=== PATIENT | female | born 1995 | race Caucasian/White ===

== ENCOUNTER 2025-03-11 18:03 | Emergency (ER) | payer BC ==
[~2025-03-11] VITALS: Ht 160 cm; Wt 61.2 kg
[2025-03-11 18:06] VITALS: TEMP 36.8; O2SAT 100
[2025-03-11 18:12] VITALS: O2SAT 100
[2025-03-11 18:59] LABS: HEMATOCRIT. 42.7 % (36.0-48.0); HEMOGLOBIN. 13.9 g/dL (12.0-16.0); MEAN CORPUSCULAR HEMOGLOBIN 29.7 pg (28.0-32.0); MEAN CORPUSCULAR HGB CONC 32.5 g/dL (31.0-37.0); MEAN CORPUSCULAR VOLUME 91.5 fL (81.0-99.0); MEAN PLATELET VOLUME 7.5 fl (7.4-10.4); PLATELET 324 x1000/uL (130-400); RED BLOOD CELL COUNT 4.67 mill/uL (4.2-5.4)
[2025-03-11 19:00] LABS: DIFFERENTIAL COMMENT 1
[2025-03-11 19:09] LABS: CHLORIDE 107 mEq/L (98-107); POTASSIUM 3.6 mEq/L (3.5-5.1); SODIUM 140 mEq/L (136-145)
[2025-03-11 19:10] LABS: CARBON DIOXIDE 22 mEq/L (21-32)
[2025-03-11 19:11] LABS: CALCIUM 9.5 mg/dL (8.7-10.4)
[2025-03-11 19:15] LABS: CREATININE 0.9 mg/dL (0.6-1.0); GLUCOSE 100 mg/dL (70-105)
[2025-03-11 19:16] LABS: UREA NITROGEN BLOOD 13 mg/dL (9-23)
[2025-03-11 19:17] LABS: ALANINE AMINOTRANSFERASE 10 IU/L (10-49); ALBUMIN 4.4 g/dL (3.2-4.8); ASPARTATE AMINOTRANSFERASE 18 IU/L (<34)
[2025-03-11 19:18] LABS: HCG SCREEN NEGATIVE
[2025-03-11 19:39] LABS: BILIRUBIN DIRECT 0.3 mg/dL (<=3.0); BILIRUBIN TOTAL 1.1 mg/dL (0.1-1.0)
[2025-03-11 19:40] LABS: PROTEIN TOTAL 7.6 g/dL (6.0-8.3)
[2025-03-11 19:52] LABS: PLATELET ESTIMATE NORMAL
[2025-03-11 19:58] VITALS: BP 118/71; PULSE 104; RESP 16
[2025-03-11] MEDS: SODIUM CHLORIDE 0.9% 1,000 ML IV ONE (19:58)
[2025-03-11] MEDS: KETOROLAC 30MG/ML VIAL IV ONE (19:58)
[2025-03-11] MEDS: ONDANSETRON HCL 4MG/2ML INJ IV ONE (19:58)
[2025-03-11 20:39] LABS: CLARITY URINE CLEAR (CLEAR); COLOR URINE YELLOW (YELLOW); GLUCOSE URINE NEGATIVE (NEGATIVE); KETONES URINE 2+ (NEGATIVE); LEUKOCYTE ESTERASE URINE TRACE (NEGATIVE); NITRITE URINE NEGATIVE (NEGATIVE); OCCULT BLOOD URINE TRACE (NEGATIVE); PROTEIN URINE 3+ (NEGATIVE)
[2025-03-11 20:53] LABS: BACTERIA URINE NONE SEEN; HYALINE CASTS URINE 0-5 /lpf; RBC URINE 0-2 /hpf (0-2); SQUAMOUS EPITHELIAL CELL URINE FEW /lpf (RARE/1+); WBC URINE 0-2 /hpf (0-2)
[2025-03-11] MEDS ORDERED: ONDA4TAB50 MT (22:41)
== END 2025-03-11 22:53 | disposition home or self-care (01) ==
LOC: ER 18:03
DX: E86.0 Dehydration (principal); Z88.2 Allergy status to sulfonamides
CPT/HCPCS: 80076; 80048; 81003; 81025; 84703; 83690; 85025; 36415; 96361; 96374; 96375; 99284; J1885; J2405; J7030; Z7610 ×2